=== PATIENT | female | born 1995 | race Caucasian/White ===

== ENCOUNTER 2022-12-23 10:05 | Outpatient (CLI) | payer MEDICAID, SELFPAY | END 2022-12-23 10:06 | disposition home or self-care (01) | LOC: NFLDREF 12-28 06:45 | PROVIDERS: PCP Physician Assistant; Referring Provider Physician Assistant; Visit Provider Advanced Practice Midwife | DX: Z32.00 Encounter for pregnancy test, result unknown (principal) | CPT/HCPCS: 84702 ==

== ENCOUNTER 2023-01-06 08:57 | Outpatient (CLI) | payer MEDICAID, SELFPAY ==
--- NOTE | 2023-01-06 09:15 | CRLHL7_ITS ---
For Patients: As a result of the Century Cures Act, medical imaging exams and procedure reports are released immediately into your electronic medical record. You may view this report before your referring provider. If you have questions, please contact your health care provider. INDICATION: First trimester scan, establish dates. COMPARISON: None. TECHNIQUE: Real-time cherry-scale imaging of the pelvis was performed. FINDINGS: Intrauterine gestational sac is present measuring 1.6 cm, 6 weeks 3 days. Possible pole measuring 1.5 millimeters. No heart tones. No subchorionic hemorrhage. No adnexal mass. Corpus luteal cyst right ovary. Normal left ovary. IMPRESSION: Intrauterine gestational sac with possible tiny pole. No yolk sac. is of uncertain viability and follow-up in 2-3 weeks recommended. Dictated by Ross Amezquita MD @ 01/06/2023 10:26:29 AM (Electronically Signed)
== END 2023-01-06 08:58 | disposition home or self-care (01) ==
PROVIDERS: PCP Physician Assistant; Visit Provider Advanced Practice Midwife
DX: Z34.91 Encounter for supervision of normal pregnancy, unspecified, first trimester (principal); O36.80X0 Pregnancy with inconclusive fetal viability, not applicable or unspecified
CPT/HCPCS: 76817

== ENCOUNTER 2023-01-20 07:04 | Outpatient (CLI) | payer MEDICAID, SELFPAY ==
--- NOTE | 2023-01-20 07:15 | CRLHL7_ITS ---
For Patients: As a result of the Cures Act, medical imaging exams and procedure reports are released immediately into your electronic medical record. You may view this report before your referring provider. If you have questions, please contact your health care provider. Indication: Indeterminate ultrasound January 06, 2023. Assess for viability. Technique: Sonography of the gravid uterus was performed. The study was performed transvaginally. Comparison: January 06, 2023 Findings: A gestational sac is noted measuring 2.3 centimeters. The structure that probably represented a small pole noted on the prior study is no longer visible. A yolk sac is not visualized. Ovaries are not visualized. The findings are consistent with a nonviable 1st trimester . No visible adnexal mass or free fluid Impression: Nonviable 1st trimester . Dictated by Davon Dennis MD @ 01/20/2023 10:51:54 AM (Electronically Signed)
== END 2023-01-20 07:05 | disposition home or self-care (01) ==
LOC: US 07:04
PROVIDERS: PCP Physician Assistant; Visit Provider Advanced Practice Midwife
DX: O35.9XX0 Maternal care for (suspected) fetal abnormality and damage, unspecified, not applicable or unspecified (principal)
CPT/HCPCS: 76817; 86900; 86901

== ENCOUNTER 2023-01-20 08:48 | Outpatient (CLI) | payer MEDICAID, SELFPAY | END 2023-01-20 08:49 | disposition home or self-care (01) | LOC: NFLDREF 08:50 | PROVIDERS: PCP Physician Assistant; Visit Provider Advanced Practice Midwife | DX: O02.1 Missed abortion (principal) | CPT/HCPCS: 86900; 86901 ==

== ENCOUNTER 2023-02-07 14:53 | Outpatient (CLI) | payer MEDICAID, SELFPAY ==
--- NOTE | 2023-02-07 15:00 | CRLHL7_ITS ---
For Patients: As a result of the Century Cures Act, medical imaging exams and procedure reports are released immediately into your electronic medical record. You may view this report before your referring provider. If you have questions, please contact your health care provider. INDICATION: OB ? MISSED COMPARISON: 01/20/2023 TECHNIQUE: Real-time cherry-scale imaging of the pelvis was performed. FINDINGS: Left ovary normal measuring 2.7 x 1.8 x 1.8 cm. Intrauterine gestational sac with mean sac diameter of 23.5 millimeters, 7 weeks 3 days. No pole or yolk sac. Right ovary normal and measures 2.8 x 2.1 x 2.4 cm. Trace pelvic free fluid. IMPRESSION: Intrauterine gestational sac without embryo or yolk sac consistent with nonviable gestation. Dictated by Ross Amezquita MD @ 02/08/2023 11:31:44 AM (Electronically Signed)
== END 2023-02-07 14:54 | disposition home or self-care (01) ==
LOC: US 15:00
PROVIDERS: Visit Provider Obstetrics & Gynecology
DX: O02.1 Missed abortion (principal)
CPT/HCPCS: 76817

== ENCOUNTER 2023-02-09 10:04 | Day surgery (SDC) | payer MEDICAID, SELFPAY ==
[2023-02-09] MEDS: DOXYCYCLINE HYCLATE 100 MG 200 MG PO (10:08)
[2023-02-09] MEDS: SODIUM CHLORIDE 0.9 % (FLUSH) 10 ML SYRINGE IVF (10:30)
[2023-02-09] MEDS: LACTATED RINGERS 1000 ML 1,000 ML 100 ML IV (10:30)
[2023-02-09 10:37] VITALS: BP 101/49; PULSE 77; RESP 16; TEMP 36.6; O2SAT 96; BMI 31.1
[2023-02-09 10:54] LABS: Hemoglobin* 13.1 gm/dL (12.0-16.0)
--- NOTE | 2023-02-09 11:16 | W.PM.H&PU ---
History & Physical Update History & Physical Update H&P Reviewed and patient assessed: No changes noted
[2023-02-09] MEDS: ONDANSETRON 2 MG/ML inj 4 MG IVP (11:38)
--- NOTE | 2023-02-09 12:28 | W.ANESCHARGE ---
Anesthesia Charges Start Date/Time Anesthesia Start Date: 02/09/23 Anesthesia Start Time: 12:06 Stop Date/Time Anesthesia Stop Date: 02/09/23 Anesthesia Stop Time: 12:45
[2023-02-09] MEDS: SILVER NITRATE APPLICATOR 1 EACH STICK..EA. TOPICAL (12:29)
[2023-02-09] MEDS: LIDOCAINE 1% MDV 20 ML INJECTION (12:29)
[2023-02-09] MEDS: miSOPROStoL 800 MCG/4 TABLET PR (12:31)
[2023-02-09 12:42] VITALS: BP 123/73; PULSE 91; RESP 16; TEMP 36.4; O2SAT 94
--- NOTE | 2023-02-09 12:43 | W.PM.GYNPROC ---
Procedure Note Date of procedure: 02/09/23 Pre-op diagnosis: Missed Post-op diagnosis: same Procedure: Suction dilation and curettage Anesthesia: MAC Complications: None Surgeon: Sonia Vicente MD Estimated blood loss (mL): 10 Urine Output (mL): 5 Pathology: specimen obtained, sent to pathology (Products of conception) Condition: stable Disposition: same day Findings: Uterus anteverted of about 8-9cm. Speculum exam: Cervix without gross lesions or abnormal discharge. Uterine sound 9cm. Procedure Description: Risks, benefits, alternatives, and indications of the procedure were discussed with the patient. She voiced an understanding of the procedure and signed the consent. The patient was taken to the OR were IV sedation anesthesia was administered without difficulty. She was placed in the dorsal lithotomy position with Alejo type stirrups. An exam under anesthesia revealed a 8-9 week sized anteverted uterus. The patient was prepared and draped in the normal sterile fashion. Her bladder was emptied with in--out catheter. A bivalved speculum was inserted in the posterior aspect of the vagina. 8 mL 1% lidocaine was injected in the anterior lip of cervix, the single-tooth tenaculum was used to grasp the anterior lip of the cervix. The uterus was carefully sounded to 9 cm. A 9 mm suction curette was advanced to the uterine fundus. The suction was then started. The products of conception were evacuated with the curette rotating on the outward movement. Afterwards a gentle, sharp curettage was then performed with a large curette and suction re inserted with no additional products of conception noted only blood. The tenaculum was removed from the cervix and good hemostasis was noted after silver nitrate treatment at puncture sites. 800mcg of rectal Cytotec placed. The patient tolerated the procedure well. Instrument and sponge counts were correct x2. Patient was taken to the recovery room in a stable condition. Patient did receive 200mg oral Doxycycline at preop area as infection prophylaxis. The patient will go home after recovering from anesthesia and meeting all the criteria for discharge. She was given the instructions regarding follow-up visit in 2 weeks at the [facility] and instructions for pain medication. Patient had asked for medication to help relieve situational anxiety and 3 pills of 0.5mg of Ativan sent to pharmacy. Patient understands that if mood continues to be an issue at her 2 week post op visit, we need to talk about appropriate medication therapy for mood disorder with SSRIs. A debrief was completed at the end of procedure clarifying procedure performed, EBL, specimens to sent to pathology and to answer questions/concerns.
[2023-02-09 12:45] VITALS: BP 120/73; PULSE 87; RESP 16; O2SAT 93
[2023-02-09 13:00] VITALS: BP 104/89; PULSE 91; RESP 16; O2SAT 96
--- NOTE | 2023-02-09 13:14 | W.ANESCHARGE ---
Anesthesia Charges Start Date/Time Anesthesia Start Date: 02/09/23 Anesthesia Start Time: 12:06 Stop Date/Time Anesthesia Stop Date: 02/09/23 Anesthesia Stop Time: 12:45
== END 2023-02-09 13:22 | disposition home or self-care (01) ==
PROVIDERS: Visit Provider Obstetrics & Gynecology
PROC: (CPT 59820; principal; 2023-02-09 11:45)
DX: O02.1 Missed abortion (principal)
CPT/HCPCS: 59820; 00940; 01965; 36415; 85018; 86850; 86900; 86901; 88305; A9270; J1100; J2250; J2405; J2704; J3010; J7120

== ENCOUNTER 2023-04-10 11:47 | Outpatient (CLI) | payer MEDICAID, SELFPAY | END 2023-04-10 11:48 | disposition home or self-care (01) | LOC: NFLDREF 11:48 | PROVIDERS: Visit Provider Registered Nurse | DX: Z32.00 Encounter for pregnancy test, result unknown (principal); R53.83 Other fatigue | CPT/HCPCS: 84702 ==

== ENCOUNTER 2023-07-12 15:52 | Outpatient (CLI) | payer MEDICAID, SELFPAY | END 2023-07-12 15:53 | disposition home or self-care (01) | PROVIDERS: Visit Provider Obstetrics & Gynecology | DX: R53.83 Other fatigue (principal); Z83.3 Family history of diabetes mellitus; Z13.29 Encounter for screening for other suspected endocrine disorder; Z13.21 Encounter for screening for nutritional disorder; Z13.1 Encounter for screening for diabetes mellitus | CPT/HCPCS: 80053; 82306; 84443 ==

== ENCOUNTER 2023-07-30 16:37 | Emergency (ER) | payer MEDICAID, SELFPAY ==
[2023-07-30 16:40] VITALS: BP 130/80; PULSE 99; RESP 18; TEMP 37.2; O2SAT 97; BMI 32.8
--- NOTE | 2023-07-30 16:54 | ED.GENADULT ---
HPI - General Adult General Time Seen by Provider: 16:54 Date Seen: 07/30/23 Chief complaint: Urogenital Problems, Female Stated complaint: Post op: pain on left vag labia swollen/bleeding Time Seen by Provider: 07/30/23 16:45 Source: patient, RN notes reviewed and old records reviewed Mode of arrival: ambulatory Limitations: no limitations History of Present Illness HPI narrative: This very pleasant 28-year-old female is coming in with bleeding from her left labia majora. She had a mole removed and some cysts removed from her vaginal/perineal area in clinic. This was done on July 26, clinic no removed. Patient is feeling like there is increased swelling along the left labia, ongoing bleeding at times. She notes there was minimal at , she did go to the bathroom right away after the procedure noted some bleeding. She feels like the area is more warm and swollen. She has noted a little bit of itching. This site at the base where she had a mole removed is also bothering her more. No systemic fevers. She does feel like particularly the left labia is more swollen though. In review of the note, looks like hemostasis was observed with silver nitrate cautery. Related Data Home Medications Medication Instructions Recorded Confirmed cholecalciferol (vitamin D3) 50 50 mcg PO QDAY 07/20/23 07/28/23 mcg (2,000 unit) capsule Previous Rx's Medication Instructions Recorded norethindrone (contraceptive) 0.35 0.35 mg PO QDAY #84 tabs 07/28/23 mg tablet cephalexin 500 mg tablet 500 mg PO TID #20 tabs 07/30/23 Allergies Allergy/AdvReac Type Severity Reaction Status Date / Time shellfish derived Allergy Severe Swelling Verified 07/28/23 09:46 of Lip/Tongue/Throat Review of Systems Narrative: As per HPI. [facility] History Missed ab ?O02.1 - Missed (ICD-10) ?Z34.90 - Encounter for supervision of normal , unspecified, unspecified trimester (ICD-10) Sebaceous cyst of labia ?N90.7 - Vulvar cyst (ICD-10) History of migraine with aura ?Z86.69 - Personal history of other diseases of the nervous system and sense organs (ICD-10) Surgical History History of reduction of closed dislocation ?Z87.828 - Personal history of other (healed) physical injury and trauma (ICD-10) Family History Father Diabetes Grandmother Diabetes Grandfather Diabetes Social History What is your current living situation?: I presently have a place to live Problems where you live: no known problems In the past 12 months, utilities in danger of being shut off: no In past 12 months, lack of transportation kept you from medical appts, meetings, work, or getting things needed for daily living: no In the past 12 mos, have been you worried that your food would run out before you had money to buy more?: never true In the past 12 mos, the food you bought just didn't last and you didn't have money to buy more?: never true Smoking Status: Never smoker Do you use any of these nicotine containing products: None Second hand tobacco smoke exposure: No How often do you have a drink containing alcohol: monthly or less How many standard drinks containing alcohol do you have on a typical day: 1 or 2 How often do you have six or more drinks on one occasion: Never AUDIT-C Alcohol total score: 1 Non-prescribed substance use: denies use Caffeine: Yes How often does anyone, including family, friends and others, physically hurt you: never How often does anyone, including family, friends and others, insult or talk down to you: sometimes How often does anyone, including family, friends and others, threaten you with harm: never How often does anyone, including family, friends and others, scream or curse at you: sometimes Little interest or pleasure in doing things: not at all Feeling down, depressed, or hopeless: not at all service: No Exam Const: Vital Signs, click to edit/add: Vital Signs - 24 hr 07/30/23 16:40 Temperature 98.9 F Pulse Rate [Right Pulse Oximeter] 99 Respiratory Rate 18 Blood Pressure [Ri ght Upper Arm] 130/80 Pulse Oximetry 97 Oxygen Delivery Me thod Room Air Patient is alert, interactive, no apparent distress. She has no inguinal adenopathy, left labia certainly does seem swollen with a central area that has a clot in the middle of the wound. She has about a 5 mm long skin deficit in the center of the left labia with an adherent clot. There is soft tissue swelling, some mild erythema, I cannot express anything, the clot is adherent in the wound. Area is not fluctuant. She has 2 wounds along the right labia/perineum that have the whitish black tammy cautery changes from the silver nitrate. There is no significant erythema, no purulent drainage. These wounds really do not have any extensive soft tissue swelling. Documenting provider has reviewed patient's vital signs: yes Course Course ED Course: Did talk to Dr. Desai regarding this patient. Did review with patient are possible 3 options. The left labial lesion is not actively bleeding, has a good clot in it right now. I do think there is possibly some soft tissue infection as she is concerned about. We discussed oral antibiotics, will give her dose of Keflex 500 mg here. For this left labial wound, I could anesthetize, clean out the clot, see if I can see a site of bleeding and recall her eyes. That certainly may aggravate tissues further, cause further irritation. With her having a formed clot in place and no fluctuance, do not think we need to drain this at this point. I would certainly favor some antibiotics and close follow-up with ongoing issues. Alternatively, we did discuss sometimes we will put a late stitch in and cover with antibiotics but that certainly does increase the risk. With there being no active bleeding at this time in a nice adherent clot, would certainly not favor this course. We have discussed following a course of treatment with antibiotics and close follow-up of ongoing issues. She will contact the clinic tomorrow to get in with her physician if ongoing issues. Vital Signs Vital signs: Initial Vital Signs Temperature 98.9 F 07/30/23 16:40 Temperature Source Temporal Artery Scan 07/30/23 16:40 Pulse Rate 99 07/30/23 16:40 Respiratory Rate 18 07/30/23 16:40 Blood Pressure 130/80 07/30/23 16:40 Blood Pressure Mean 96 07/30/23 16:40 Blood Pressure Position Sitting 07/30/23 16:40 Pulse Oximetry 97 07/30/23 16:40 Oxygen Delivery Method Room Air 07/30/23 16:40 Vital Signs Temperature 98.9 F 07/30/23 16:40 Pulse Rate 99 07/30/23 16:40 Respiratory Rate 18 07/30/23 16:40 Blood Pressure 130/80 07/30/23 16:40 Pulse Oximetry 97 07/30/23 16:40 Oxygen Delivery Method Room Air 07/30/23 16:40 Temperature 98.9 F 07/30/23 16:40 Pulse Rate 99 07/30/23 16:40 Respiratory Rate 18 07/30/23 16:40 Blood Pressure 130/80 07/30/23 16:40 Pulse Oximetry 97 07/30/23 16:40 Oxygen Delivery Method Room Air 07/30/23 16:40 Discharge Plan Discharge Clinical Impression: Wound infection Patient Disposition: Home, Self-Care Condition: Stable Instructions: Wound Infection (ED) Additional Instructions: Attempt to keep wounds on the perineum as clean as possible, pat area dry, do not aggressively wipe. Can use a spray bottle with clean water to help clean the tissues after going to the restroom. You do not want to keep the tissues excessively moist however, do need to make sure the area has been padded dry sufficiently. Continue with oral antibiotic, next dose due tomorrow morning. Would contact your physician in clinic to schedule a recheck this week, as soon as possible if ongoing issues. Prescriptions: New cephalexin 500 mg tablet 500 mg PO TID Qty: 20 0RF No Action cholecalciferol (vitamin D3) 50 mcg (2,000 unit) capsule 50 mcg PO QDAY norethindrone (contraceptive) 0.35 mg tablet 0.35 mg PO QDAY Qty: 84 0RF Follow Up/Referrals: Keara Fernandez MD [Primary Care Provider] - Stand Alone Forms: [facility] Info Instructions
[2023-07-30] MEDS: cephALEXin 500 MG CAPSULE PO (17:36)
== END 2023-07-30 17:48 | disposition home or self-care (01) ==
PROVIDERS: Emergency Provider Family Medicine; PCP Family Medicine
DX: T81.41XA Infection following a procedure, superficial incisional surgical site, initial encounter (principal)
CPT/HCPCS: 99282; 99283; A9270

== ENCOUNTER 2023-11-20 08:00 | Outpatient (CLI) | payer MEDICAID, SELFPAY | END 2023-11-20 08:01 | disposition home or self-care (01) | LOC: NFLDREF 10:48 | PROVIDERS: PCP Family Medicine; Referring Provider Family Medicine; Visit Provider Family Medicine | DX: E55.9 Vitamin D deficiency, unspecified (principal); R73.03 Prediabetes; R79.89 Other specified abnormal findings of blood chemistry; Z13.220 Encounter for screening for lipoid disorders; Z11.59 Encounter for screening for other viral diseases | CPT/HCPCS: 80053; 80061; 82306; 82977; 86803; 87340 ==

== ENCOUNTER 2023-11-27 14:56 | Outpatient (CLI) | payer MEDICAID, SELFPAY ==
--- NOTE | 2023-11-27 15:00 | CRLHL7_ITS ---
For Patients: As a result of the Century Cures Act, medical imaging exams and procedure reports are released immediately into your electronic medical record. You may view this report before your referring provider. If you have questions, please contact your health care provider. INDICATION: Abnormal liver enzymes COMPARISON: none TECHNIQUE: Real time cherry scale imaging and color Doppler analysis was performed of the right upper quadrant. FINDINGS: The liver echotexture is diffusely increased. No intrahepatic mass. Focal areas of fatty sparing noted adjacent to the gallbladder. There is a normal appearance of the hepatic IVC and proximal abdominal aorta. There is no evidence of ascites. The gallbladder is of normal size and there are mobile echogenic and shadowing stones. The gallbladder wall measures 1.6 mm in thickness. The common bile duct is of normal size and measures 3.2 mm in diameter at the level of the jose hepatis. The pancreas appears normal. There is no evidence of a stone or hydronephrosis within the right kidney. The right kidney measures cm in length. IMPRESSION: Diffuse hepatic steatosis with fatty sparing adjacent to the gallbladder. Cholelithiasis with multiple gallstones. Dictated by Ross Amezquita MD @ 11/28/2023 7:00:06 AM (Electronically Signed)
== END 2023-11-27 14:57 | disposition home or self-care (01) ==
LOC: US 14:57
PROVIDERS: PCP Family Medicine; Visit Provider Family Medicine
DX: R79.89 Other specified abnormal findings of blood chemistry (principal); K76.0 Fatty (change of) liver, not elsewhere classified; K80.20 Calculus of gallbladder without cholecystitis without obstruction
CPT/HCPCS: 76705

== ENCOUNTER 2024-10-10 16:46 | Outpatient (CLI) | payer OTHER, SELFPAY | END 2024-10-10 16:47 | disposition home or self-care (01) | LOC: NFLDREF 16:47 | PROVIDERS: PCP Family Medicine; Visit Provider Internal Medicine | DX: R79.89 Other specified abnormal findings of blood chemistry (principal) | CPT/HCPCS: 80053 ==

== ENCOUNTER 2024-10-24 08:24 | Day surgery (SDC) | payer OTHER, SELFPAY ==
[2024-10-24] VITALS (12 sets, daily range): BP systolic 109–121; BP diastolic 56–79; PULSE 75–107; RESP 12–20; TEMP 36.8–37.6; O2SAT 95–99; BMI 34.2
[2024-10-24 09:01] LABS: Ur HCG Qualitative* Negative (Negative)
[2024-10-24] MEDS: SODIUM CHLORIDE 0.9 % (FLUSH) 10 ML SYRINGE IVF (09:07)
[2024-10-24] MEDS: LACTATED RINGERS 1000 ML 1,000 ML 100 ML IV (09:07)
--- NOTE | 2024-10-24 11:00 | P.GSOP_ITS ---
Operative Note Date of procedure: 10/24/24 Pre-op diagnosis: 1. Biliary colic 2. hepatosteatosis Post-op diagnosis: Same Type of Procedure: Laparoscopic cholecystectomy Indications: The patient is a 29-year-old female who been have right-sided abdominal pain after eating. This started more recently, however last year workup for elevated AST and ALT revealed diffuse hepatic steatosis as well as gallstones. Initially she was not symptomatic, however over the past few weeks she has begun to develop these symptoms. We discussed options and she elected to proceed with cholecystectomy. Procedure Description: After discussing the risks and benefits of the procedure, the patient signed in formed consent.? The operative site was marked and the patient was brought to the operating room and placed on the operating table in supine position.? Care was taken to pad the patient's pressure points.?? The patient was then intubated by anesthesia.?? The operative site was then prepped and draped in the usual sterile fashion.? A time-out was then performed. Entrance to the abdomen was gained via a 5 mm Visiport in the left upper quadrant. The abdomen was insufflated and briefly surveyed for signs of injury. There was none. A 10 mm umbilical port was placed as well as 2 working ports along the right costal margin, all under direct vision. The patient was then placed in reverse Trendelenburg position with the right side up. The gallbladder fundus was grasped and retracted cephalad. The infundibulum was grasped. A combination of hook cautery and blunt dissection was used to carefully dissect out the cystic duct and artery until they could clearly be seen entering the gallbladder without any intervening structures. The gallbladder was dissected off the cystic plate to achieve the critical view. Once this was achieved the cystic duct and artery were each clipped with 2 clips proximally and 1 clip distally and transected with the scissors. The gallbladder was then taken off of the liver bed and removed from the abdomen using an Endo-Catch bag. The gallbladder bed was surveyed for hemostasis which appeared adequate. A small amount of bile which had spilled was suctioned from the abdomen. The umbilical port fascia was closed with 0 Vicryl using a Vladimir-Vi device. The abdomen was desufflated and the remaining ports removed. The skin was closed with absorbable subcuticular suture. sterile dressings were applied. Instrument sponge and needle counts were correct at the end of the case. The patient was then woken and transferred to the PACU in stable condition. ? The patient tolerated the procedure well. Findings: None Anesthesia: GETA Surgeon: Kirstie Tom MD Estimated blood loss (mL): 5 Specimen: Gallbladder Condition: stable Disposition: PACU
--- NOTE | 2024-10-24 11:00 | W.PM.H&PU ---
History & Physical Update History & Physical Update H&P Reviewed and patient assessed: No changes noted
[2024-10-24] MEDS: BUPIVACAINE 0.25% 30 ML INJECTION (12:45)
--- NOTE | 2024-10-24 12:58 | P.ANES_ITS ---
Anesthesia Charges Start Date/Time Anesthesia Start Date: 10/24/24 Anesthesia Start Time: 11:30 Stop Date/Time Anesthesia Stop Date: 10/24/24 Anesthesia Stop Time: 12:56 Coding CPT Codes CPT Codes: ANESTH SURG UPPER ABDOMEN - 61699 ([id number]) P2 - PATIENT W/MILD SYST DISEASE, QX - SUPERVISOR EDGING SVC W/ MD MED DIRECTION, QK - TELEVISION INSTALLER 2-4 CNCRNT ANES PROC
--- NOTE | 2024-10-24 12:58 | W.ANESCHARGE ---
Anesthesia Charges Start Date/Time Anesthesia Start Date: 10/24/24 Anesthesia Start Time: 11:30 Stop Date/Time Anesthesia Stop Date: 10/24/24 Anesthesia Stop Time: 12:56 Coding CPT Codes CPT Codes: ANESTH SURG UPPER ABDOMEN - 01412 ([id number]) P2 - PATIENT W/MILD SYST DISEASE, QX - ALL TERRAIN VEHICLE TECHNICIAN SVC W/ MD MED DIRECTION, QK - OUTSOLE MOLDER 2-4 CNCRNT ANES PROC
[2024-10-24] MEDS: ONDANSETRON 2 MG/ML inj 4 MG IVP (13:06)
--- NOTE | 2024-10-24 13:11 | W.ANESCHARGE ---
Anesthesia Charges Start Date/Time Anesthesia Start Date: 10/24/24 Anesthesia Start Time: 11:30 Stop Date/Time Anesthesia Stop Date: 10/24/24 Anesthesia Stop Time: 12:56 Coding CPT Codes CPT Codes: ANESTH SURG UPPER ABDOMEN - 86079 ([id number]) QK - ACID REGENERATOR 2-4 CNCRNT ANES PROC, QX - ORE PUNCHER SVC W/ MD MED DIRECTION, P2 - PATIENT W/MILD SYST DISEASE
--- NOTE | 2024-10-24 13:11 | P.ANES_ITS ---
Anesthesia Charges Start Date/Time Anesthesia Start Date: 10/24/24 Anesthesia Start Time: 11:30 Stop Date/Time Anesthesia Stop Date: 10/24/24 Anesthesia Stop Time: 12:56 Coding CPT Codes CPT Codes: ANESTH SURG UPPER ABDOMEN - 59171 ([id number]) QK - CLIENT ADMINISTRATOR 2-4 CNCRNT ANES PROC, QX - ABRASIVES SALES REPRESENTATIVE SVC W/ MD MED DIRECTION, P2 - PATIENT W/MILD SYST DISEASE
--- NOTE | 2024-10-24 13:34 | SUR.PHASEI ---
patient met discharge criteria per anesthesia
[2024-10-24] MEDS: LACTATED RINGERS 1000 ML 1,000 ML 50 ML IV (13:42)
[2024-10-24] MEDS: HYDROCODONE-ACETAMIN 5-325 MG 1 TAB PO (13:46)
== END 2024-10-24 14:52 | disposition home or self-care (01) ==
PROVIDERS: PCP Internal Medicine; Visit Provider Surgery
PROC: 0FT44ZZ Resection of Gallbladder, Percutaneous Endoscopic Approach (ICD-10-PCS; CPT 47562; principal; 2024-10-24 09:45)
DX: K80.20 Calculus of gallbladder without cholecystitis without obstruction (principal); K76.0 Fatty (change of) liver, not elsewhere classified
CPT/HCPCS: 47562; 00790; 81025; A9270; J0330; J0665; J0690; J1100; J1171; J1885; J2250; J2405; J2704; J3010; J3490; J7120

== ENCOUNTER 2024-12-11 13:32 | Outpatient (CLI) | payer OTHER, SELFPAY ==
[2024-12-14 13:15] LABS: HPV Source Cervical
[2024-12-23 19:01] LABS: Pap Test Screened Manually Done
== END 2024-12-11 13:33 | disposition home or self-care (01) ==
PROVIDERS: PCP Internal Medicine; Visit Provider Obstetrics & Gynecology
DX: N91.2 Amenorrhea, unspecified (principal); E55.9 Vitamin D deficiency, unspecified; E66.9 Obesity, unspecified; R73.03 Prediabetes; F33.42 Major depressive disorder, recurrent, in full remission; R79.89 Other specified abnormal findings of blood chemistry; Z12.4 Encounter for screening for malignant neoplasm of cervix; Z11.51 Encounter for screening for human papillomavirus (HPV); Z13.6 Encounter for screening for cardiovascular disorders
CPT/HCPCS: 80053; 80061; 83498; 84146; 84270; 84402; 84403; 84443; 87624; 87625; 88141; 88142; 88175

== ENCOUNTER 2024-12-17 11:23 | Outpatient (CLI) | payer OTHER, SELFPAY ==
--- NOTE | 2024-12-17 11:30 | CRLHL7_ITS ---
For Patients: As a result of the Century Cures Act, medical imaging exams and procedure reports are released immediately into your electronic medical record. You may view this report before your referring provider. If you have questions, please contact your health care provider. INDICATION: amenorrhea COMPARISON: 09/10/2021 TECHNIQUE: 2D cherry-scale and color Doppler images were acquired of the pelvis using a transabdominal and transvaginal approach. Transvaginal imaging performed to better visualize the endometrial stripe and ovaries. FINDINGS: Sonographic images demonstrate a normal size and smooth outer contour of the uterus. Uterus measures 7.9 cm in length by 3.5 cm in AP diameter by 4.8 cm in transverse dimension. The myometrium has a normal uniform echotexture. The endometrial lining appears normal and measures 6.1 mm in composite thickness. The right ovary measures 3.2 x 2.6 x 2.6 cm in size and the left ovary measures 2.8 x 2.6 x 2.5 cm. The ovaries demonstrate normal arterial and venous blood flow on color Doppler analysis. There are no suspicious fluid collections within the cul-de-sac. Multiple peripheral follicles are present within each ovary. IMPRESSION: Endometrial thickness 6.1 millimeters. No endometrial fluid. No uterine fibroid. Bilateral ovarian follicles in a peripheral distribution. Dictated by Ross Amezquita MD @ 12/17/2024 12:17:13 PM (Electronically Signed)
== END 2024-12-17 11:24 | disposition home or self-care (01) ==
LOC: US 11:24
PROVIDERS: PCP Internal Medicine; Visit Provider Obstetrics & Gynecology
DX: N91.1 Secondary amenorrhea (principal); R93.89 Abnormal findings on diagnostic imaging of other specified body structures; N83.02 Follicular cyst of left ovary; N83.01 Follicular cyst of right ovary
CPT/HCPCS: 76830; 76856

== ENCOUNTER 2024-12-24 14:15 | Outpatient (CLI) | payer OTHER, SELFPAY | END 2024-12-24 14:16 | disposition home or self-care (01) | LOC: NFLDREF 12-30 02:08 | PROVIDERS: PCP Internal Medicine; Referring Provider Internal Medicine; Visit Provider Obstetrics & Gynecology | DX: R79.89 Other specified abnormal findings of blood chemistry (principal); R73.03 Prediabetes | CPT/HCPCS: 80074 ==